=== PATIENT | female | born 1975 | race Caucasian/White ===

== ENCOUNTER 2018-11-13 11:13 | Outpatient (REF) | payer MEDICAID, SELFPAY ==
[2018-11-13 21:31] LABS: HCT 43.9 % (36.0-46.0); HGB 15.2 g/dL (12.0-15.5); Mean Corp. HGB Concentration 34.6 g/dL (32.0-36.0); Mean Corpuscular Hemoglobin 31.5 pg (27.0-33.0); Mean Corpuscular Volume 91.1 fL (80-95); Mean Platelet Volume 11.6 fL (8.0-11.0); Platelet Count 305 x1000/uL (130-400); RBC 4.82 m/cumm (4.00-5.20); RBC Distribution Width 12.9 % (11.7-14.6); White Blood Cell Count 10.64 k/cumm (4.4-10.8)
[2018-11-13 21:40] LABS: ALT 32 U/L (12-78); AST 19 U/L (15-37); Albumin 3.8 g/dL (3.4-5.0); Alkaline Phosphatase 125 U/L (46-116); BUN 17 mg/dL (7-18); Bilirubin, Total 0.4 mg/dL (0.2-1.0); Chloride 102 mmol/L (98-107); Glucose 79 mg/dL (70-100); Potassium 3.4 mmol/L (3.5-5.1); Sodium 141 mmol/L (136-145); Total Protein 6.9 g/dL (6.4-8.2)
== END 2018-11-13 11:33 ==
LOC: NCHCN 11:13
PROVIDERS: PCP Family Medicine; Visit Provider Family Medicine
DX: K91.81 Other intraoperative complications of digestive system (principal)
CPT/HCPCS: 80053; 85027

== ENCOUNTER 2019-01-30 12:37 | Outpatient (REF) | payer MEDICAID, SELFPAY ==
[2019-01-30 19:04] LABS: Anion Gap 10.6 mmol/L (3-11); BUN 18 mg/dL (7-18); CO2 30.4 mmol/L (21.0-32.0); CREATININE 0.77 mg/dL (0.55-1.02); Calcium 10.1 mg/dL (8.5-10.1); Chloride 99 mmol/L (98-107); Cholesterol 271 mg/dL (50-200); Glucose 80 mg/dL (70-100); HDL Cholesterol 40 mg/dL (40-60); LDL CHOLESTEROL 181 mg/dL (<100); Magnesium 1.7 mg/dL (1.8-2.4); Potassium 3.5 mmol/L (3.5-5.1); Sodium 140 mmol/L (136-145); Triglyceride 272 mg/dL (30-150); Vitamin B12 418 pg/mL (193-986)
== END 2019-01-30 12:57 ==
LOC: NCHCN 12:37
PROVIDERS: PCP Family Medicine; Visit Provider Family Medicine
DX: R20.0 Anesthesia of skin (principal); Z00.00 Encounter for general adult medical examination without abnormal findings
CPT/HCPCS: 80048; 80061; 83721; 82607; 83735; 84443

== ENCOUNTER 2019-12-21 10:55 | Outpatient (REF) | payer MEDICAID, SELFPAY ==
[2019-12-21 20:03] LABS: HCT 45.1 % (36.0-46.0); HGB 15.6 g/dL (12.0-15.5); Mean Corp. HGB Concentration 34.6 g/dL (32.0-36.0); Mean Corpuscular Hemoglobin 31.3 pg (27.0-33.0); Mean Corpuscular Volume 90.6 fL (80-95); Mean Platelet Volume 11.3 fL (8.0-11.0); Platelet Count 318 x1000/uL (130-400); RBC 4.98 m/cumm (4.00-5.20); RBC Distribution Width 13.1 % (11.7-14.6)
[2019-12-21 20:07] LABS: ALT 34 U/L (14-59); AST 18 U/L (15-37); Albumin 3.9 g/dL (3.4-5.0); Alkaline Phosphatase 144 U/L (46-116); BUN 16 mg/dL (7-18); Bilirubin, Total 0.3 mg/dL (0.2-1.0); CREATININE 0.85 mg/dL (0.55-1.02); Calcium 9.4 mg/dL (8.5-10.1); Calculated LDL 91 mg/dL (<100); Chloride 102 mmol/L (98-107); Cholesterol 170 mg/dL (<200); Glucose 79 mg/dL (74-106); HDL Cholesterol 38 mg/dL (40-60); Magnesium 1.8 mg/dL (1.8-2.4); Potassium 3.7 mmol/L (3.5-5.1); Sodium 141 mmol/L (136-145); Triglyceride 206 mg/dL (<150)
== END 2019-12-21 11:15 ==
LOC: NCHCN 10:55
PROVIDERS: PCP Family Medicine; Visit Provider Family Medicine
DX: E87.6 Hypokalemia (principal); E78.5 Hyperlipidemia, unspecified; Z01.818 Encounter for other preprocedural examination
CPT/HCPCS: 80053; 80061; 85027; 83735

== ENCOUNTER 2020-06-10 14:52 | Outpatient (REF) | payer MEDICAID, SELFPAY ==
[2020-06-10 19:28] LABS: Abs Immature Grans 0.06 10^3/uL (0.0-0.06); Absolute Basophil Count 0.03 10^3/uL (0.0-0.2); Absolute Eosinophil Count 0.14 10^3/uL (0.0-0.7); Absolute Lymphocyte Count 2.95 10^3/uL (1.2-3.4); Basophils % 0.2; Eosinophils % 1.1; HCT 44.2 % (36.0-46.0); Immature Grans % 0.5; Lymphocytes % 22.7; MCH 30.4 pg (27.0-33.0); MCHC 33.9 % (32.0-36.0); MCV 89.5 fL (80-95); MPV 11.2 fL (8.0-11.0); Monocytes % 6.5; Nucleated RBC 0 %; Platelet Count 329 10^3/uL (130-400); RBC 4.94 10^6/uL (3.93-5.22); RDW 13.2 % (11.7-14.6); WBC 13.01 10^3/uL (4.4-10.8)
[2020-06-10 19:29] LABS: Absolute Monocyte Count 0.85 10^3/uL (0.1-0.8); Absolute Neutrophil Count 8.98 10^3/uL (1.2-6.7)
[2020-06-10 19:44] LABS: ALT 170 U/L (14-59); AST 90 U/L (15-37); Albumin 3.6 g/dL (3.4-5.0); Alkaline Phosphatase 306 U/L (46-116); Anion Gap 8.6 mmol/L (3-11); BUN 18 mg/dL (7-18); Bilirubin, Total 3.9 mg/dL (0.2-1.0); CO2 32.4 mmol/L (21.0-32.0); CREATININE 0.92 mg/dL (0.55-1.02); Calcium 9.1 mg/dL (8.5-10.1); Chloride 96 mmol/L (98-107); Glucose 94 mg/dL (74-106); Sodium 137 mmol/L (136-145); Total Protein 7.2 g/dL (6.4-8.2)
[2020-06-10 20:01] LABS: Potassium 2.6 mmol/L (3.5-5.1)
[2020-06-14 09:51] LABS: Hepatitis A Antibody IgM Negative (Negative); Hepatitis B Core Antibody Negative (Negative); Hepatitis B surface Ag Negative (Negative); Hepatitis C Ab w Rflx HCV PCR Negative (Negative)
== END 2020-06-10 15:12 ==
LOC: NCHCN 14:52
PROVIDERS: PCP Family Medicine; Visit Provider Physician Assistant Medical
DX: R11.2 Nausea with vomiting, unspecified (principal); R10.9 Unspecified abdominal pain; R79.89 Other specified abnormal findings of blood chemistry
CPT/HCPCS: 80053; 86704; 86709; 86803; 87340; 85025; 87086

== ENCOUNTER 2020-06-24 09:18 | Outpatient (REF) | payer MEDICAID, SELFPAY ==
[2020-06-24 19:28] LABS: ALT 39 U/L (14-59); AST 22 U/L (15-37); Albumin 3.6 g/dL (3.4-5.0); Alkaline Phosphatase 159 U/L (46-116); Anion Gap 8.4 mmol/L (3-11); BUN 16 mg/dL (7-18); Bilirubin, Total 0.5 mg/dL (0.2-1.0); CO2 29.6 mmol/L (21.0-32.0); CREATININE 0.86 mg/dL (0.55-1.02); Calcium 9.6 mg/dL (8.5-10.1); Chloride 101 mmol/L (98-107); Glucose 102 mg/dL (74-106); Potassium 3.9 mmol/L (3.5-5.1); Sodium 139 mmol/L (136-145); Total Protein 6.8 g/dL (6.4-8.2)
== END 2020-06-24 09:38 ==
LOC: NCHCN 09:18
PROVIDERS: PCP Family Medicine; Visit Provider Physician Assistant Medical
DX: R79.89 Other specified abnormal findings of blood chemistry (principal)
CPT/HCPCS: 80053

== ENCOUNTER 2020-08-10 14:08 | Outpatient (REF) | payer MEDICAID, SELFPAY ==
[2020-08-10 21:38] LABS: ALT 117 U/L (14-59); AST 73 U/L (15-37); Albumin 3.3 g/dL (3.4-5.0); Alkaline Phosphatase 318 U/L (46-116); Amylase 25 U/L (25-115); Bilirubin, Total 4.5 mg/dL (0.2-1.0); Lipase 66 U/L (73-393); Total Protein 6.8 g/dL (6.4-8.2)
== END 2020-08-10 14:28 ==
LOC: NCHCN 14:08
PROVIDERS: PCP Family Medicine; Visit Provider Physician Assistant Medical
DX: R79.89 Other specified abnormal findings of blood chemistry (principal); R10.11 Right upper quadrant pain
CPT/HCPCS: 80076; 83690; 82150

== ENCOUNTER 2022-08-14 19:06 | Outpatient (REF) | payer MEDICAID, SELFPAY ==
[2022-08-14 16:40] LABS: Hemoglobin A1C 5.8 % (<5.7)
[2022-08-14 16:49] LABS: ALT 32 U/L (14-59); AST 25 U/L (15-37); Albumin 3.8 g/dL (3.4-5.0); Alkaline Phosphatase 160 U/L (46-116); Anion Gap 9.9 mmol/L (3-11); BUN 27 mg/dL (7-18); Bilirubin, Total 0.4 mg/dL (0.2-1.0); CO2 28.1 mmol/L (21.0-32.0); CREATININE 0.8 mg/dL (0.55-1.02); Calcium 9.2 mg/dL (8.5-10.1); Calculated LDL 110 mg/dL (<100); Chloride 99 mmol/L (98-107); Cholesterol 200 mg/dL (<200); Estimated GFR 90.27 (mL/min/1.73m2); Glucose 86 mg/dL (74-106); HDL Cholesterol 46 mg/dL (40-60); Potassium 3.3 mmol/L (3.5-5.1); Sodium 137 mmol/L (136-145); Total Protein 7.7 g/dL (6.4-8.2); Triglyceride 222 mg/dL (<150)
== END 2022-08-14 19:07 | disposition home or self-care (01) ==
LOC: NCHCN 19:06
PROVIDERS: PCP Family Medicine; Visit Provider Family Medicine
DX: R79.89 Other specified abnormal findings of blood chemistry (principal); E87.6 Hypokalemia
CPT/HCPCS: 80053; 80061; 83036

== ENCOUNTER 2023-06-17 17:57 | Outpatient (REF) | payer MEDICAID, SELFPAY ==
[2023-06-17 19:32] LABS: BUN 23 mg/dL (7-18); CREATININE 0.9 mg/dL (0.55-1.02); Calcium 9.6 mg/dL (8.5-10.1); Chloride 101 mmol/L (98-107); Estimated GFR 77.88 (mL/min/1.73m2); Glucose 104 mg/dL (74-106); Potassium 3.8 mmol/L (3.5-5.1); Sodium 137 mmol/L (136-145)
== END 2023-06-17 17:58 | disposition home or self-care (01) ==
LOC: NCHCN 17:57
PROVIDERS: PCP Family Medicine; Visit Provider Family Medicine
DX: E78.5 Hyperlipidemia, unspecified (principal); E66.9 Obesity, unspecified
CPT/HCPCS: 80048; 84443

== ENCOUNTER → 2023-08-21 14:58 | Outpatient (CLI) | payer MEDICAID, SELFPAY ==
--- NOTE | 2023-08-21 | DI.US_ITS ---
Exam(s) US RENAL EXAM: US RENAL CLINICAL HISTORY: FLANK PAIN, R10.9, ? NEPHROLITHIASIS, CT SCAN AT [facility] 10/05/22 SHOWED 3 MM TECHNIQUE: Ultrasound of both kidneys performed using standard protocol. COMPARISON: No exams were available for comparison FINDINGS: RIGHT KIDNEY: Measures 10.8 cm in length. No cysts evident. There is mild-moderate uniform thinning of the cortical mantle. No cysts nor solid lesions seen. No intrarenal calculi nor hydronephrosis. LEFT KIDNEY: Measures 9.4 cm in length. No cysts evident. There is also mild-moderate uniform thinning of the cor tical mantle on this side. No solid masses.. There is subtle suggestion of a 5 millimeter hyperecho ic focus towards the inferior aspect of the left kidney which may be a nonobstructive calculus. URINARY BLADDER: Prevoid volume is 319 cc Postvoid volume is 0 cc No evidence of bladder mass nor diverticuli. Ureterovesical jets: Left ureterovesical jet was not identified. IMPRESSION: 1. Possible subtle nonobstructive 5 mm calculus in the lower pole region of the left kidney. 2. Absence of visualization of the left ureterovesical jet in the bladder. This may imply the prese nce of an obstruction such as calculus in the left ureter. There is no obvious hydronephrosis on the se images. 3. Both kidneys exhibit normal size but there appears to be symmetrical thinning of the renal cortic es bilaterally. Wet read DATA REPOSITORY:
== END ==
PROVIDERS: PCP Family Medicine; Visit Provider Nurse Practitioner Family
DX: R10.9 Unspecified abdominal pain (principal)
CPT/HCPCS: 76770

== ENCOUNTER 2023-08-21 18:50 | Outpatient (REF) | payer MEDICAID, SELFPAY ==
[2023-08-21 20:56] LABS: Anion Gap 10.5 mmol/L (3-11); BUN 20 mg/dL (7-18); CO2 26.5 mmol/L (21.0-32.0); CREATININE 0.9 mg/dL (0.55-1.02); Calcium 9.6 mg/dL (8.5-10.1); Chloride 102 mmol/L (98-107); Estimated GFR 77.88 (mL/min/1.73m2); Glucose 82 mg/dL (74-106); Potassium 3.4 mmol/L (3.5-5.1); Sodium 139 mmol/L (136-145)
== END 2023-08-21 18:51 | disposition home or self-care (01) ==
LOC: NCHCN 18:50
PROVIDERS: PCP Family Medicine; Visit Provider Nurse Practitioner Family
DX: N20.0 Calculus of kidney (principal)
CPT/HCPCS: 80048; 87086

== ENCOUNTER 2024-06-16 01:26 | Outpatient (CLI) | payer OTHER, MEDICAID, SELFPAY ==
--- NOTE | 2024-06-16 11:07 | DI.RAD_ITS ---
Exam(s) XR LUMBAR SPINE AP, LAT EXAM: XR LUMBAR SPINE AP, LAT CLINICAL HISTORY: Disability determination, spine arthritis and bile duct cut in half. TECHNIQUE: 2D digital imaging was performed. Five views. COMPARISON: CR LUMBAR SPINE COMPLETE from 01/09/2013 FINDINGS: BONES: No fracture or destructive lesion. Small endplate osteophytes. Vertebral body heights are tucker ntained. Mild facet hypertrophy identified at L5-S1. . DISKS: Intervertebral disc spaces are maintained. ALIGNMENT: Lumbar spinal alignment is within normal limits. SOFT TISSUE: 2 biliary stents noted. Right upper quadrant surgical clips. IMPRESSION: Mild degenerative changes. DATA REPOSITORY: RADIATION DOSE DELIVERED:
--- NOTE | 2024-06-16 11:15 | DI.RAD_ITS ---
Exam(s) XR HIP LT COMPLETE AP PELVIS EXAM: XR HIP LT COMPLETE AP PELVIS INDICATION: Disability determination, spine arthritis and bile duct cut in half. COMPARISON: CT CT ABD/PELVIS W CONTRAST from 10/05/2022 TECHNIQUE: 2D digital imaging was performed. Three views. FINDINGS: The bones are normally mineralized. The hip joint spaces are maintained. The SI joints are unremark able. Surgical clip noted in pelvis. IMPRESSION: Unremarkable pelvis and left hip. No significant degenerative changes. DATA REPOSITORY: RADIATION DOSE DELIVERED:
== END 2024-06-16 01:46 ==
PROVIDERS: PCP Family Medicine; Visit Provider Pediatrics Pediatric Rheumatology
DX: Z02.71 Encounter for disability determination (principal)
CPT/HCPCS: 72100; 73502